=== PATIENT | male | born 1960 | race Caucasian/White ===

== ENCOUNTER 2019-02-25 07:32 | Day surgery (SDC) | payer MEDICAID ==
[~2019-02-25] VITALS: Ht 188 cm; Wt 73.3 kg
[2019-02-25] VITALS (9 sets, daily range): BP systolic 110–128; BP diastolic 64–82
[2019-02-25] MEDS: normal saline 1000ml 1,000 ML IV SCH ×2 (08:00→08:33)
[2019-02-25] MEDS ORDERED: METO-292 PO (08:13)
[2019-02-25] MEDS ORDERED: ALBU18HF2 INH (08:13)
[2019-02-25] MEDS ORDERED: DOCU100C40 PO (08:13)
[2019-02-25] MEDS ORDERED: TRAM50TA2 PO (08:13)
[2019-02-25] MEDS ORDERED: LISI-600 PO (08:13)
[2019-02-25] MEDS ORDERED: LOVA40TA2 PO (08:13)
[2019-02-25] MEDS ORDERED: OMEP20TA5 PO (08:13)
[2019-02-25] MEDS ORDERED: ONDA4TAB12 PO (08:13)
[2019-02-25 08:19] LABS: EOSINOPHILS % (AUTO) 0.3 % (0-6); LYMPHOCYTES # (AUTO) 1.8 X10'3 (1.1-4.8); NEUTROPHILS # (AUTO) 14.1 X10'3 (1.8-7.7)
[2019-02-25 08:20] LABS: BASOPHILS % (AUTO) 0.3 % (0-1); HEMATOCRIT 26.5 % (42.0-52.0); HEMOGLOBIN 8.4 g/dl (14.0-17.9); MEAN CORPUSCULAR HEMOGLOBIN 24.1 PG (27.0-31.0); MEAN CORPUSCULAR HGB CONC 31.5 g/dL (33.0-36.5); MEAN CORPUSCULAR VOLUME 76.5 FL (78-98); MEAN PLATELET VOLUME 7.6 FL (7.4-10.4); MONOCYTES # (AUTO) 2.1 X10'3 (0-0.9); MONOCYTES % (AUTO) 11.4 % (2-12); PLATELET COUNT 791 X10'3 (140-440); RED BLOOD COUNT 3.47 X10'6 (4.70-6.10); RED CELL DISTRIBUTION WIDTH 16.5 % (11.5-14.5); WHITE BLOOD COUNT 18.1 X10'3 (4.5-11.0)
[2019-02-25] MEDS ORDERED: heparin sodium, porcine/PF 100unit/ml 5ML syringe ICATH ONE (08:30)
[2019-02-25] MEDS ORDERED: fentaNYL/PF 50MCG/1 ML 2ML syringe IV PRN (08:30)
[2019-02-25] MEDS ORDERED: midazolam 2 mg/2 ml injection IV PRN (08:30)
[2019-02-25] MEDS ORDERED: LIDOcaine 1%/PF 5ML 10 MG/ML VIAL SQ ONE (08:30)
[2019-02-25] MEDS ORDERED: normal saline 1000ml 1,000 ML IV SCH (08:41)
[2019-02-25] MEDS ORDERED: LIDOcaine 1%/PF 5ML 10 MG/ML VIAL ONE (08:41)
[2019-02-25 08:50] LABS: INR 1.1 INR
[2019-02-25 08:51] LABS: ANION GAP 7 (8-16); BLOOD UREA NITROGEN 12 MG/DL (7-18); BUN/CREATININE RATIO 17.6 (5.4-32.0); CALCIUM 8.6 MG/DL (8.5-10.1); CHLORIDE 94 MMOL/L (99-107); CREATININE 0.68 MG/DL (0.60-1.10); GLUCOSE 106 MG/DL (70-104); POTASSIUM 3.8 MMOL/L (3.5-5.1); SODIUM 128 MMOL/L (135-145); TOTAL CARBON DIOXIDE 27.1 MMOL/L (24-32); eGFR > 90 ML/MIN
[2019-02-25] MEDS ORDERED: heparin sodium, porcine/PF 100unit/ml 5ML syringe ONE (08:54)
[2019-02-25] MEDS ORDERED: fentaNYL/PF 50MCG/1 ML 2ML syringe ONE (08:54)
[2019-02-25] MEDS ORDERED: midazolam 2 mg/2 ml injection ONE (08:54)
[2019-02-25 09:20] LABS: ANISOCYTOSIS 1+; MICROCYTOSIS 1+; PLATELET ESTIMATE INCREASED; TOTAL CELLS COUNTED 100
[2019-02-25 09:21] LABS: HYPOCHROMASIA 1+
== END 2019-02-25 12:40 | disposition home or self-care (01) ==
LOC: SSTAY O 07:32
PROVIDERS: ATTEND Radiology Diagnostic Radiology
DX: C18.9 Malignant neoplasm of colon, unspecified (principal); C78.7 Secondary malignant neoplasm of liver and intrahepatic bile duct; I10 Essential (primary) hypertension; E78.5 Hyperlipidemia, unspecified; J42 Unspecified chronic bronchitis; Z93.3 Colostomy status; Z98.890 Other specified postprocedural states; Z79.899 Other long term (current) drug therapy
CPT/HCPCS: 36415; 36561; 76937; 77001; 80048; 85025; 85610; 99152; 99153; C1788; J1642; J2001; J2250; J3010; J7030; A6219; C1894